=== PATIENT | male | born 1980 | race Hispanic/Latino ===

== ENCOUNTER → 2023-04-11 | Day surgery (SDC) | payer SELFPAY ==
[2023-04-11 12:13] VITALS: BP 118/75
== END | disposition home or self-care (01) | DRG 951 ==
LOC: PO 07:59
PROVIDERS: ATTEND Surgery
DX: Z01.818 Encounter for other preprocedural examination (principal); U07.1 COVID-19; K42.9 Umbilical hernia without obstruction or gangrene

== ENCOUNTER 2023-08-18 01:09 | Inpatient (IN) | payer SELFPAY ==
[~2023-08-18] VITALS: Ht 167.6 cm; Wt 115.3 kg
[2023-08-18] VITALS (78 sets, daily range): BP systolic 68–130; BP diastolic 32–96
[~2023-08-18 01:09] MED LIST: AMOXICILLIN500 MG PO; NAPROSYN500 MG PO; NO MEDS; PERCOCET 5/325M1 TAB PO
--- NOTE | 2023-08-18 01:10 | NUR ---
PT TO ROOM 10 VIA EMS
--- NOTE | 2023-08-18 01:30 | NUR ---
PT RESTING ON STRETCHER W/ EYES CLOSED. RESPONDS TO VERBAL STIMULI. C/O INTERMITTENT CHEST/EPIGASTRIC PAIN. SKIN PALE AND COOL. MANUAL BP OBTAINED, 78/50. NOTIFIED AND AWARE. #22 IV PLACED IN LH AFTER 4 UNSUCCESSFUL ATTEMPTS. I INFORMED PT OF PLAN OF CARE AND HE VERBALIZED UNDERSTANDING.
[2023-08-18 01:37] LABS: BASO% 0.2 % (0-3); EOS% 0.2 % (0-8); HEMATOCRIT 34.6 % (39.0-50.0); HEMOGLOBIN 10.9 g/dl (14.0-18.0); IMMATURE GRANULOCYTES 2.9 % (0.0-5.0); LYMPH% 13.5 % (15-41); MEAN CELL VOLUME 103.6 fL CALC (80.0-100.0); MEAN CORPUSCULAR HGB 32.6 pG CALC (26.0-32.0); MEAN CORPUSCULAR HGB CONC 31.5 g/dL CAL (32.0-36.0); MONO% 3.2 % (2-13); NEUT# 10.16 thou/uL (1.82-7.42); RED BLOOD COUNT 3.34 mill/uL (4.70-6.10); RED CELL DISTRI WIDTH 13.4 % (11.5-15.5)
[2023-08-18 01:49] LABS: ALBUMIN 3.4 g/dL (3.2-5.0); BILIRUBIN, TOTAL 0.6 mg/dL (0.2-1.3); CREATININE 2.1 mg/dL (0.7-1.3); POTASSIUM 4.1 mmol/l (3.5-5.1); TOTAL PROTEIN 5.7 g/dL (6.3-8.2)
--- NOTE | 2023-08-18 02:00 | NUR ---
ACCOMPANIED PT TO CT, TRANSPORTED ON STRETCHER ATTACHED TO HOLE FILLER W/ FLUIDS INFUSING VIA PRESSURE BAG.
--- NOTE | 2023-08-18 02:25 | NUR ---
RETURNED W/ PT BACK TO ER ROOM 10. INFORMED OF CRITICAL LAB VALUE. SEPSIS ALERT INITIATED. NEW ORDERS OBTAINED
--- NOTE | 2023-08-18 02:30 | NUR ---
IVF MAINTANENCE INITIATED DUE TO CONTINUED HYPOTENSION AND TACHYCARDIA.
--- NOTE | 2023-08-18 02:55 | NUR ---
SPOKE W/ DR. LANGFORD VIA TELEPHONE TO UPDATE ON PT'S CONDITION. MD IN ROUTE AND REQUESTED OR TEAM BE CALLED FOR EXPLORATORY LAP. CONTACTED NURSING GENERAL MANAGER [facility].
--- NOTE | 2023-08-18 03:00 | NUR ---
provider/dereje orderd verbally a gonzales
--- NOTE | 2023-08-18 03:15 | NUR ---
MD BEDSIDE TO PLACE CENTRAL LINE. PROCEDURE UNSUCCESSFUL.
--- NOTE | 2023-08-18 03:15 | NUR ---
ABX INITIATED, PATIENT UPDATED ON CONTINUOUS PLAN OF CARE, AT BEDISDE. CONTINUOUS MONITORING, AWAITING FURTHER ORDERS.
[2023-08-18 03:18] LABS: URINE BILIRUBIN - DIPSTICK Negative (NEGATIVE); URINE BLOOD DIPSTICK Negative (NEGATIVE); URINE GLUCOSE - DIPSTICK Negative (NEGATIVE); URINE KETONE Trace mg/dL (NEGATIVE); URINE LEUK ESTERASE Negative (NEGATIVE); URINE NITRITE - DIPSTICK Negative (Negative); URINE PH 5.5 (4.5-8.0); URINE PROTEIN - DIPSTICK Trace mg/dL (NEG-TRACE); URINE SPECIFIC GRAVITY >=1.030; URINE UROBILINOGEN - DIPSTICK 0.2 E.U./dL (0.2)
[2023-08-18 03:19] LABS: URINE COLOR Yellow
--- NOTE | 2023-08-18 03:32 | NUR ---
PT VOMITED PT PLACED ON RIGHT SIDE PT WAS
--- NOTE | 2023-08-18 03:34 | NUR ---
CALLED RESP FOR DR WELCH INTUBATION
--- NOTE | 2023-08-18 03:42 | NUR ---
LEVOPHED PROTOCOL INITIATED DUE TO HYPOTENSION AT 73/51 HR AT 147.
--- NOTE | 2023-08-18 03:45 | NUR ---
DR. LANGFORD BEDSIDE TO DISCUSS PLAN OF CARE W/ PT AND .
--- NOTE | 2023-08-18 04:10 | NUR ---
ANTOINE OUTPUT EMPTIED AND NOTED TO BE 550ML.
--- NOTE | 2023-08-18 04:15 | NUR ---
TIMOTEO, RN BEDSIDE TO TRANSPORT PT TO OR. BEDSIDE REPORT GIVEN. PT TRANSFERED TO OR VIA STRETCHER.
[2023-08-18 09:36] LABS: BASO% 0.1 % (0-3); HEMATOCRIT 29.5 % (39.0-50.0); HEMOGLOBIN 9.8 g/dl (14.0-18.0); IMMATURE GRANULOCYTES 0.3 % (0.0-5.0); MEAN CORPUSCULAR HGB 31.3 pG CALC (26.0-32.0); MEAN CORPUSCULAR HGB CONC 33.2 g/dL CAL (32.0-36.0); MONO% 8.2 % (2-13); NEUT# 12.17 thou/uL (1.82-7.42); NEUT% 81.4 % (42-76); RED BLOOD COUNT 3.13 mill/uL (4.70-6.10); RED CELL DISTRI WIDTH 14.4 % (11.5-15.5)
[2023-08-18 09:55] LABS: ALKALINE PHOSPHATASE 37 u/l (38-126); BUN 18 mg/dL (9-20); POTASSIUM 4.5 mmol/l (3.5-5.1); SGOT/AST 37 u/l (17-59); SODIUM 136 mmol/l (137-146)
[2023-08-18 10:02] LABS: MEAN CELL VOLUME 94.2 fL CALC (80.0-100.0)
[2023-08-18 10:08] LABS: ANION GAP 10 (6-22 (CALC)); BUN/CREATININE RATIO 18 (12-20 (CALC)); CARBON DIOXIDE 16 mmol/l (22-30); CHLORIDE 115 mmol/l (95-108); GFR FOR AFR.AMER. > 60 ML/MIN (>=60 (CALC)); GFR OTHER RACES > 60 ML/MIN (>=60 (CALC))
[2023-08-18 10:09] LABS: BILIRUBIN, TOTAL 0.3 mg/dL (0.2-1.3); TOTAL PROTEIN 4.1 g/dL (6.3-8.2)
--- NOTE | 2023-08-18 11:00 | NUR ---
PT ARRIVES TO ICU-5 FROM OPERATING ROOM, ACCOMPANIED BY NURSES TIMOTEO AND JOJO. PT IS ALERT AND ORIENTED X 3. ABDOMEN SEEN COVERED WITH DRESSINGS, JPs X 2 EXIT FROM RIGHT ABDOMEN. NO ACUTE PAIN NOTED.
[2023-08-18 12:11] LABS: BASO% 0.1 % (0-3); HEMATOCRIT 30.2 % (39.0-50.0); HEMOGLOBIN 10.1 g/dl (14.0-18.0); IMMATURE GRANULOCYTES 0.6 % (0.0-5.0); MEAN CELL VOLUME 93.2 fL CALC (80.0-100.0); MEAN CORPUSCULAR HGB 31.2 pG CALC (26.0-32.0); MEAN CORPUSCULAR HGB CONC 33.4 g/dL CAL (32.0-36.0); MONO% 7.7 % (2-13); NEUT# 11.37 thou/uL (1.82-7.42); NEUT% 80.6 % (42-76); RED BLOOD COUNT 3.24 mill/uL (4.70-6.10); RED CELL DISTRI WIDTH 14.7 % (11.5-15.5)
--- NOTE | 2023-08-18 14:42 | NUR ---
PT WITH VISITORS AT BEDSIDE. PT ABLE TO TOLERATE ICE CHIPS. DRAINS EMPTIED HOURLY, AMOUNT LESSENING. ANTOINE OUTPUT INCREASING. PT MEDICATED FOR PAIN RECENTLY, APPEARS COMFORTABLE NOW.
[2023-08-18 18:22] LABS: HEMATOCRIT 28.2 % (39.0-50.0); HEMOGLOBIN 9.5 g/dl (14.0-18.0)
--- NOTE | 2023-08-18 19:15 | NUR ---
awake. c/o op pain. o2 cont per nc. lunchroom monitor shows sinus tach. lt subcl tlc in place. ivf infusing well. abd dsg cdi. no bowel sounds. rafa x2 in place. gonzales cath in place. urine cloudy yellow. instructed to tcdb freq. bilat scds & fall precautions cont. family @ bedside. medicated for pain as requested. rt notified of need for incentive spirometer.
--- NOTE | 2023-08-18 21:00 | NUR ---
remains on back. encouraged to tcdb but pt doesn't.
--- NOTE | 2023-08-18 22:00 | NUR ---
cont to lay on back. pt hasn't changed position tonight. encouraged pt to tcdb & use incentive spirometer. pt turned to lt side for approx 2 minutes then returned to back.
[2023-08-19] VITALS (59 sets, daily range): BP systolic 100–146; BP diastolic 55–89
--- NOTE | 2023-08-19 00:15 | NUR ---
c/o pain. medicated as ordered.
[2023-08-19 00:32] LABS: HEMOGLOBIN 8.5 g/dl (14.0-18.0)
--- NOTE | 2023-08-19 02:00 | NUR ---
eyes closed. no distress. high pressure kettle operator shows sinus tach.
--- NOTE | 2023-08-19 04:15 | NUR ---
medicated for pain as requested. blood drawn & sent to lab.
--- NOTE | 2023-08-19 05:30 | NUR ---
has not tcdb or used incentive spirometer this shift. up in bedside chair.
[2023-08-19 06:15] LABS: BASO% 0.2 % (0-3); HEMATOCRIT 24.6 % (39.0-50.0); HEMOGLOBIN 8.3 g/dl (14.0-18.0); IMMATURE GRANULOCYTES 0.3 % (0.0-5.0); LYMPH% 20.3 % (15-41); MEAN CELL VOLUME 94.3 fL CALC (80.0-100.0); MEAN CORPUSCULAR HGB 31.8 pG CALC (26.0-32.0); MEAN CORPUSCULAR HGB CONC 33.7 g/dL CAL (32.0-36.0); MONO% 8.7 % (2-13); NEUT# 9.37 thou/uL (1.82-7.42); NEUT% 70.5 % (42-76); RED BLOOD COUNT 2.61 mill/uL (4.70-6.10); RED CELL DISTRI WIDTH 15.3 % (11.5-15.5)
--- NOTE | 2023-08-19 06:15 | NUR ---
medicated for pain as requested. asked pt if he still drank alcohol. pt admitted 2-3 beers daily. asked pt if staff needed to watch for d/t's. pt said yes.
[2023-08-19 06:25] LABS: ALBUMIN 2.2 g/dL (3.2-5.0); ALKALINE PHOSPHATASE 48 u/l (38-126); BUN 15 mg/dL (9-20); BUN/CREATININE RATIO 17 (12-20 (CALC)); CHLORIDE 110 mmol/l (95-108); CREATININE 0.8 mg/dL (0.7-1.3); GFR FOR AFR.AMER. > 60 ML/MIN (>=60 (CALC)); GFR OTHER RACES > 60 ML/MIN (>=60 (CALC)); POTASSIUM 3.6 mmol/l (3.5-5.1); SGOT/AST 41 u/l (17-59); SODIUM 136 mmol/l (137-146); TOTAL PROTEIN 4.3 g/dL (6.3-8.2)
[2023-08-19 06:26] LABS: ANION GAP 8 (6-22 (CALC)); BILIRUBIN, TOTAL 0.5 mg/dL (0.2-1.3); CARBON DIOXIDE 22 mmol/l (22-30)
[2023-08-19 07:51] LABS: HEMOGLOBIN 8.2 g/dl (14.0-18.0)
--- NOTE | 2023-08-19 08:03 | NUR ---
Patient up to chair since 0600. Family at bedside. Patient requesting to go back to bed. Patient agreed to sit in chair until after breakfast. C/o nausea. Medicated according to emar. Afebrile. Lungs clear to ascultation. Denies pain at this time. Breathing even and unlabored. ST on the monitor. NAD noted. Call light next to R hand. Will continue with POC.
--- NOTE | 2023-08-19 10:23 | NUR ---
Patient appears to be resting with eyes closed. ST on the monitor. NAD noted. Bed in low position. Family members at bedside. Will continue with POC.
--- NOTE | 2023-08-19 14:17 | NUR ---
Patient appears to be resting in bed. Family at bedside. PRBCs transfusing. NAD noted. Bed in low position. Call light next to R hand. Will continue with POC.
--- NOTE | 2023-08-19 16:10 | NUR ---
Patient appears to be resting with eyes closed. ST on the monitor. NAD noted. Bed in low position. Call light next to R hand. Will continue with POC.
--- NOTE | 2023-08-19 18:29 | NUR ---
Patient repositioned to L side. Reminded of using incentive spirometer at least 10 times every waking hour. Demonstrated proper use and watched patient practice use. ST on the monitor. Stated he was having nausea/pain, medicated according to emar. NAD noted. Will continue with POC.
--- NOTE | 2023-08-19 19:00 | NUR ---
BEDSIDE REPORT RECEIVED FROM Nathalie VELEZ RN, CARE OF PT ASSUMED AT THIS TIME.
--- NOTE | 2023-08-19 23:00 | NUR ---
PT HAS ACUTE DROP IN SP02 TO MID 80'S, 02 INCREASED TO 6L/M. PT SAT UP TO HIGH FOWLERS, PT COACHED IN PULMONARY HYGIENE, ASSISTED TO SPLINT AND C/D/B, USE IS AND ACAPELLA. CONSULTED WITH CHIPPER MACHINE OPERATOR, PATIENT SWITCHED TO HIGH FLOW AT 8L/M. NOTED BOAZ DRAIN OUTPUT HAS INCREASED SIGNIFICANTLY.
[2023-08-19 23:08] LABS: BASO% 0.2 % (0-3); HEMATOCRIT 23.8 % (39.0-50.0); IMMATURE GRANULOCYTES 0.9 % (0.0-5.0); LYMPH% 14.6 % (15-41); MEAN CELL VOLUME 94.4 fL CALC (80.0-100.0); MEAN CORPUSCULAR HGB 31.7 pG CALC (26.0-32.0); MEAN CORPUSCULAR HGB CONC 33.6 g/dL CAL (32.0-36.0); MONO% 9.2 % (2-13); NEUT# 9.67 thou/uL (1.82-7.42); NEUT% 75.1 % (42-76); RED BLOOD COUNT 2.52 mill/uL (4.70-6.10); RED CELL DISTRI WIDTH 14.8 % (11.5-15.5)
--- NOTE | 2023-08-19 23:20 | NUR ---
PCXR COMPLETED AND RESULTED, NEW RLL INFILTRATE.
--- NOTE | 2023-08-19 23:53 | NUR ---
EKG COMPLETED BY Dafne LICEA HEMODIALYSIS RN, ST 135.
[2023-08-20] VITALS (81 sets, daily range): BP systolic 107–154; BP diastolic 64–91
--- NOTE | 2023-08-20 00:05 | NUR ---
ABG DONE BY Dafne LICEA ASSESSMENT NURSE PRACTITIONER AND RESULTED.
[2023-08-20 01:06] LABS: HEMATOCRIT 26.2 % (39.0-50.0); HEMOGLOBIN 8.8 g/dl (14.0-18.0)
[2023-08-20 01:07] LABS: MAGNESIUM 1.9 mg/dL (1.6-2.3)
--- NOTE | 2023-08-20 02:00 | NUR ---
NO OUTPUT FROM BOAZ'S, TUBING STRIPPED AND BULB SUCTION RE-ENGAGED. BOAZ'S BEGIN TO DRAIN AGAIN.
--- NOTE | 2023-08-20 03:32 | NUR ---
TRANSFUSION UNIT PRBC INITIATED.
--- NOTE | 2023-08-20 06:45 | NUR ---
TRANSFUSION PRBC COMPLETED, WELL TOLERATED.
--- NOTE | 2023-08-20 07:59 | NUR ---
Patient appears to be resting in bed. Family at bedside.
--- NOTE | 2023-08-20 10:00 | NUR ---
Patient appears to be resting with eyes closed. ST on the monitor. NAD noted. Bed in low position. Call light next to L hand. Will continue with POC.
--- NOTE | 2023-08-20 12:05 | NUR ---
Patient sitting in chair, appears to be resting with eyes closed. PRBC transfusing. ST on the monitor. Family at bedside. NAD noted. Breathing even and unlabored. Will continue with POC.
--- NOTE | 2023-08-20 12:50 | NUR ---
Spoke with patient's son, Arnold, who can be reached at [phone]. Stated it is okay for patient to have dialysis, if needed.
[2023-08-20 13:29] LABS: BASO% 0.1 % (0-3); EOS% 0.1 % (0-8); HEMOGLOBIN 9.8 g/dl (14.0-18.0); IMMATURE GRANULOCYTES 1.1 % (0.0-5.0); LYMPH% 17.5 % (15-41); MEAN CELL VOLUME 90.1 fL CALC (80.0-100.0); MEAN CORPUSCULAR HGB 30.4 pG CALC (26.0-32.0); MEAN CORPUSCULAR HGB CONC 33.8 g/dL CAL (32.0-36.0); MONO% 7.9 % (2-13); NEUT# 8.43 thou/uL (1.82-7.42); NEUT% 73.3 % (42-76); RED BLOOD COUNT 3.22 mill/uL (4.70-6.10); RED CELL DISTRI WIDTH 14.9 % (11.5-15.5)
--- NOTE | 2023-08-20 16:14 | NUR ---
Patient appears to be resting. Family at bedside. ST on the monitor. NAD noted. Will continue with POC.
--- NOTE | 2023-08-20 18:35 | NUR ---
Patient sitting up in bed. States pain was at an 8 approx 1745. Patient has been sleeping all day. Educated patient on repositioning and using spirometer. Verbalized understanding. ST on the monitor. NAD noted. Will continue with POC.
--- NOTE | 2023-08-20 19:05 | NUR ---
BEDSIDE REPORT RECEIVED FROM Nathalie VELEZ RN, CARE OF PT ASSUMED AT THIS TIME.
--- NOTE | 2023-08-20 20:15 | NUR ---
POINT OF CARE GLUCOSE 185mg/Dl, PRESCRIBED MEDICATIONS ADMINISTERED CRUSHED IN APPLE SAUCE REQUESTED BY PT. PRN ANTITUSSIVE ADMNISTERED REQIESTED BY PT FOR C/O DRY COUGH. SEE E-MAR. PT ENIES FURTHER NEEDS AT THIS TIME. CALL LOZOYA WITHIN REACH, AGREES TO CALL PRN.
--- NOTE | 2023-08-20 20:30 | NUR ---
PT SITTING UP IN BED, FAMILY/VISITORS AT BEDSIDE. PT DENIES PAIN AT THIS TIME. PT DENIES NEEDS AT THIS TIME. 20 ML SANGUINEOUS DRAINAGE EMPTIED FROM BOAZ DRAIN #1 60 ML SANGUINEOUS DRAINAGE EMPTIED FROM BOAZ DRAIN #2 ABD DRESSING C/D/I. PT REPORTS HE IS NOW PASSING FLATUS. CALL LOZOYA WITHIN REACH, AGREES TO CALL PRN.
--- NOTE | 2023-08-20 22:15 | NUR ---
PT SITTING UP WATCHING TV, DENIES NEEDS AT THIS TIME. CALL LOZOYA WITHIN REACH, AGREES TO CALL PRN.
[2023-08-21] VITALS (62 sets, daily range): BP systolic 111–138; BP diastolic 69–85
--- NOTE | 2023-08-21 00:26 | NUR ---
PT LAYING SUPINE, EYES CLOSED, RESPIRATIONS REGULAR EVEN AND UNLABORED. ST 104 ON RECORDS COORDINATOR. SP02 97-98%. RR 15-16/MIN. NIBP 127/75 mmHg. PT EXHIBITS NO APPARENT DISTRESS OR DISCOMFORT AND APPEARS TO BE SLEEPING COMFORTABLY. CALL LOZOYA REMAINS WITHIN REACH.
--- NOTE | 2023-08-21 03:30 | NUR ---
PT WAKES AND USES NURSE CALL LIGHT TO REQUEST PRN ANALGESIC. REPORTS ABD PAIN 04/29. PRN ANALGESIC ADMINISTERED, SEE E-MAR. DENIES FURTHER NEEDS AT THISS TIME. CALL LOZOYA WITHIN REACH, AGREES TO CALL PRN.
--- NOTE | 2023-08-21 05:22 | NUR ---
AM LABS COLLED VIA L-SC TLC. 15 ML SANGUINEOUS DRAINAGE EMPTIED FROM BOAZ DRAIN #1. 120 ML SANGUINEOUS DRAINAGE EMPTIED FROM BOAZ DRAIN #2. 700ML DARK YELLOW URINE WITH FINE SEDIMENT EMPTIED FROM ANTOINE. PT SITTING UP USING INCENTIVE SPIROMETER, DENIES PAIN. FRESH ICE WATER PROVIDED PER PT'S REQUEST. DENIES FURTHER NEEDS AT THIS TIME. CALL LOZOYA REMAINS WITHIN REACH, AGREES TO CALL PRN.
[2023-08-21 05:45] LABS: BASO% 0.1 % (0-3); EOS% 0.6 % (0-8); HEMATOCRIT 26.2 % (39.0-50.0); HEMOGLOBIN 8.8 g/dl (14.0-18.0); IMMATURE GRANULOCYTES 1.4 % (0.0-5.0); LYMPH% 20.1 % (15-41); MEAN CELL VOLUME 91.6 fL CALC (80.0-100.0); MEAN CORPUSCULAR HGB 30.8 pG CALC (26.0-32.0); MEAN CORPUSCULAR HGB CONC 33.6 g/dL CAL (32.0-36.0); MONO% 8.1 % (2-13); NEUT# 7.24 thou/uL (1.82-7.42); NEUT% 69.7 % (42-76); RED BLOOD COUNT 2.86 mill/uL (4.70-6.10); RED CELL DISTRI WIDTH 15.2 % (11.5-15.5)
--- NOTE | 2023-08-21 06:44 | NUR ---
CUTTER DOWN ON ROOM REFILLING HUMIDITY ON PT'S HIGH FLOW 02.
--- NOTE | 2023-08-21 08:04 | NUR ---
PATIENT RESTING IN BED WITH EYES OPEN. NO C/O OF PAIN, NO SOB, AOX3 AND ANSWERING QUESTIONS APPROPRIATELY. EMPTIED OUT BOAZ DRAINS AND ANTOINE. PATIENT STATES HE IS AMBULATING FROM BED TO CHAIR WITH MINIMAL PAIN. NO OTHER CONCERNS AT THIS TIME.
--- NOTE | 2023-08-21 09:30 | NUR ---
PATEINT UP IN CHAIR TO IMPROVE OXYGENATION. PATIENT C/O OF MILD BURNING PAIN IN ABDOMEN. LORTAB WAS GIVEN WITH SOME RELIEF ACHIEVED. BOAZ DRAINS CONTAINING 50MLS OF BRIGHT RED SERI SANGUINEOUS FLUID. CALL LIGHT WITHIN REACH.
--- NOTE | 2023-08-21 15:00 | NUR ---
DR LANGFORD ASSESSED PATIENT AND PLACED ORDERS FOR DOWNGRADE TO MS UNIT. HE PRESCRIBED IV LASIX AND DC'D IV FLUIDS. HE STATED ANTOINE CATHETER CAN BE REMOVED IN THE AM TOMORROW. PATIENT HAD SOME DIFFICULTY GETTING FROM RECLINER TO WHEELCHAIR BUT WAS SUCESSFUL USING A WALKER. TRANSPORTED PATIENT TO MED SURG UNIT VIA WHEELCHAIR AND GAVE REPORT TO NURSE TATA. PATIENT CONDITION STABLE, AOX3, MINIMAL PAIN WITH ACTIVITY. SURGICAL DRESSINGS CLEAN AND DRY. BOAZ DRAINS INTACT AND DRAINING BRIGHT RED SERISANGUINEOUS FLUID. 2L NASAL CANNULA PRN PATIENT TENDS TO RUN IN UPPER 80'S, LOW 90'S BC D/T ATELECTASIS AND GENERALIZED EDEMA.
--- NOTE | 2023-08-21 15:11 | NUR ---
PT BROUGHT OVER FROM ICU VIA WHEELCHAIR. PT WAS ABLE TO AMBULATE TO BED WITH X2 ASSIST. GAIT WEAK. PT IS A/OX3, COMPLAINS OF MILD PAIN 3 OUT OF 10 IN ABD. NOTED PT ANTOINE CATHETER WITH CLEAR YELLOW URINE OUTPUT. CENTRAL LINE IN LEFT CHEST NOTED. DSG CLEAN AND INTACT. PT HAS 2 BOAZ DRAINS WITH RED BLOODY OUTPUT TO THE RT LOWER QUADRANT OF ABD. MIDLINE INCISION NOTED BUT UNOBERSABLE DUE TO DSG. DSG CDI. PT HAS +2 PITTING EDEMA BLE. EDEMA NOTED BILATERALLY IN FOREARMS AND HANDS. PT SCROTUM HAS SWELLING NOTED WELL. APPLIED TIBURCIO HOSE TO BLE WITH SCD'S. EDUCATED PT ON PLAN OF CARE, AMBULATING, DIET AND MED SCHEDULE. APPLIED PILLOWS UNDER ALL EXTREMETIES TO ELEVATE. CALL LIGHT WITHIN REACH AND SAFETY PRECAUTIONS IN PLACE. PT FAMILY AT BEDSIDE.
--- NOTE | 2023-08-21 19:17 | NUR ---
PT HAD A OXYGEN SATURATION OF 80 @1904. NURSE PEÑA SHAFFER @1906.
--- NOTE | 2023-08-21 20:06 | NUR ---
PATIENT SITTING UP IN BED AT THIS TIME WITH FAMILY AT BEDSIDE. O2 VIA NASAL CANNULA WAS APPLIED EARLIER FOR SOB AND LOW O2 SAT. O2 SAT AT THIS TIME WITH O2 AT 3LPM NASAL CANNULA IS 96%. PATIENT STATES THAT HIS BREATHING HAS IMPROVED. STILL A LIKTTLE RAPID AT 24-26 RESP PER MIN. PATIENT WITH CRACKLES ALMA IN LUNGS HALF WAY UP. PATIENT IS ABLE TO DEMONSTRATE PROPER USE OF IS IN REPS OF 10. ALSO ENCOUARGED USE OF FLUTTER VALVE. ABD IS DISTENDED BUT SOFT WITH LARGE ABD DRESSING CDI AT THIS TIME. 2 BOAZ DRAINS ARE INTACT TO RIGHT ABD DRAINING SEROSANGUINOUS FLUID. BS ARE PRESENT. PATIENT STATES THAT HE DID HAVE SMALL BROWN STOOL EARLIER TONIGHT AFTER WALKING. IS PASSING FLATUS. ANTOINE CATH PATENT AND DRAINING YELLOW URINE. TAKING PO FLUIDS IN SMALL AMTS-NO NAUSEA AT THIS TIME. CALL PLACED TO DR. RUANO REGGRAYING RESP STATUS-CRACKLES IN LUNGS AND GENERALIZED EDEMA. LET MESSAGE ON VOICE MAIL. SAFETY PRECAUTIONS REINFORCED. CALL LIGHT IN REACH. WILL CONT TO MONITOR.
--- NOTE | 2023-08-21 21:31 | NUR ---
PT AMBULATED UP AND DOWN [address] YAN ON [employer] TWICE @2124. THE NURSE PEÑA NOTIFIED.
--- NOTE | 2023-08-21 22:30 | NUR ---
PATIENT SITTING UP IN BED WITH O2 VIA NASAL CANNULA IN PLACE AT 2LPM. O2 SAT IS NOW 94%. PATIENT WAS UP AND AMB IN THE YAN WITH SB ASSIST-TOLERATE WELL. PATIENT MEDICATED FOR PAIN WITH DILAUDID 1MG FOR POST-OP PAIN. PATIENT ALSO RECIEVED LASIX 20MG IVP ORDERED VIA LEFT TLC. ABD DRESSINGS WERE CHANGED. ONLY SCANT AMT OF DRIED BLOODY DRAINAGE NOTED ON OLD DRESSING. 2 BOAZ DRAINS INTACT. #1 EMPTIED FOR 10CC OF SERSANGUINOUS FLUID. ,#2 EMPTIED FOR 50CC OF SEROSANGUINOIUS FLUID. NEW DSD APPLIED-GERMÁN ARE INTACT AND INCISION WELL APPROXIMATED. ABD IS SLIGHTLY DISTENDED BUT SOFT WITH ACTIVE BS.ANTOINE PATENT AND DRAINING LARGE AMT OF YELLOW URINE. SAFETY PRECAUTIONS REINFORCED. CALL LIGHT IN REACH. WILL CONT TO MONITOR.
[2023-08-22] VITALS (7 sets, daily range): BP systolic 107–128; BP diastolic 65–74
--- NOTE | 2023-08-22 01:00 | NUR ---
RESTING IN BED-STATES THAT HIS BREATHING IS IMPROVED-O2 VIA NASAL CANNULA IN PLACE AT 2LPM. PATIENT RECIEVED ZOSYN ORDERED. CALL LIGHT IN REACH. WILL CONT TO MONITOR.
--- NOTE | 2023-08-22 02:40 | NUR ---
PATIENT RESTING IN BED WITH O2 VIA NASAL CANNULA IN PLACE AT 2LPM WITH O2 SAT OF 94% AT THIS TIME. BREATHING MORFE RELAXED THAN EARLIER IN THE SHIFT. MEDICATED FOR POST-OP PAIN/RIGHT LEG PAIN WITH DILAUDID 1MG IVP ORDERED FOR 7/10 PAIN SCALE. SCD'S ARE INPLACE. PATIENT USING IS INSTRUCTED Q1H WHILE AWAKE IN REPS OF 10. ANTOINE DRAINING YELLOW URINE AND 2 BOAZ DRAINS CONT TO DRAIN SERSANGUINOUS FLUID. CALL LIGHT IN REACH. WILL CONT TO MONITOR.
--- NOTE | 2023-08-22 04:51 | NUR ---
PATIENT RESTING IN BED AT THIS TIME WITH EYES CLOSED AND RESPS ARE EVEN AND UNLABORED AT THIS TIME. O2 VIA NASAL CANNULA IN PLACE AT 2LPM. LAB WORK DRAWN FROM LEFT UPPER CHEST TLC BROWN PORT. GOOD BLOOD RETUN AND FLUSH WITH SALINE PER PROTOCOL. ALL 3 PORTS FLUSHED PER PROTOCOL WITH GOOD BLOOD RETURN FROM ALL 3 PORTS. ANTOINE CONT TO DRAIN YELLOW URINE. ABD DRESSING REMAINS CDI. 2 BOAZ DRAINS TO RIGHT ABD INTACT AND CONT TO DRAIN SERSANGUINOUS FLUID. SCD'S IN PLACE. CALL LIGHT IN REACH. WILL CONT TO MONITOR.
[2023-08-22 05:23] LABS: BASO% 0.1 % (0-3); EOS% 1.2 % (0-8); HEMATOCRIT 25.5 % (39.0-50.0); HEMOGLOBIN 8.5 g/dl (14.0-18.0); LYMPH% 14.8 % (15-41); MEAN CELL VOLUME 92.7 fL CALC (80.0-100.0); MEAN CORPUSCULAR HGB 30.9 pG CALC (26.0-32.0); MEAN CORPUSCULAR HGB CONC 33.3 g/dL CAL (32.0-36.0); MONO% 9.1 % (2-13); NEUT# 7.72 thou/uL (1.82-7.42); NEUT% 72.8 % (42-76); RED BLOOD COUNT 2.75 mill/uL (4.70-6.10); RED CELL DISTRI WIDTH 14.8 % (11.5-15.5)
[2023-08-22 05:51] LABS: ANION GAP 6 (6-22 (CALC)); BUN 12 mg/dL (9-20); BUN/CREATININE RATIO 18 (12-20 (CALC)); CHLORIDE 98 mmol/l (95-108); CREATININE 0.7 mg/dL (0.7-1.3); GFR FOR AFR.AMER. > 60 ML/MIN (>=60 (CALC)); GFR OTHER RACES > 60 ML/MIN (>=60 (CALC)); POTASSIUM 3.1 mmol/l (3.5-5.1); SODIUM 131 mmol/l (137-146)
[2023-08-22 05:54] LABS: CARBON DIOXIDE 30 mmol/l (22-30)
--- NOTE | 2023-08-22 08:00 | NUR ---
PT IN BED WITH HOB UP, PT IS ALERT AND ORIENTED X3. PT REMAINS ON CLEAR LIQUID DIET. TELE ON WITH LEADS ATTACHED. O2@ 2 LITERS ON VIA NC. LUNG SOUNDS COARSE IN LOWER BASES. ABD SOFT WITH HYPOACTIVE BS. PT ANTOINE INTACT DRAINING DARK, YELLOW URINE. BOAZ DRAIN WITH 5 ML OF BLOODY DRAINAGE NOTED, LOWER BOAZ DRAIN WITH NO DRAINAGE NOTED AT THIS TIME. DRESSING TO ABD CLEAN, DRY AND INTACT. PT HAS CALL LIGHT WITHIN REACH AND ALL SAFETY MEASURES IN PLACE AT THIS TIME.
--- NOTE | 2023-08-22 12:00 | NUR ---
PT IN BED RESTING, EYES OPENED TO VOICE. PT FAMLIY AT BEDSIDE. PT C/O PAIN AT 6/10 ON PAIN SCALE. PT MEDICATED WITH PRN MEDICATION. PT HAS CALL LIGHT WITHIN REACH AND ALL SAFETY MEASURES IN PLACE AT THIS TIME.
--- NOTE | 2023-08-22 16:00 | NUR ---
PT IN BED WITH HOB UP, FAMILY IN RM. DRESSING TO ABD C/D/I. PT HAS CALL LIGHT WITHIN REACH AND SAFETY MEASURES IN PLACE.
--- NOTE | 2023-08-22 17:23 | NUR ---
Discharge instructions given. Patient verbalizes understanding of same. Discharged in stable condition via Wheelchair to Home with family. All belongings sent with pt.
--- NOTE | 2023-08-22 19:30 | NUR ---
PATIENT RESTING IN BED AT THIS TIME WITH O2 VIA NASAL CANNULA IN PLACE AT 1LPM. FAMILY VISITING AT BEDSIDE. ANTOINE PATENT AND DRIANING YELLOW URINE. BOAZ DRAINS INTACT TO RIGHT ABD. ABD DRESSING CDI. LEFT UPPER CHEST TLC INTACT. CALL LIGHT IN REACH. WILL CONT TO MONITOR.
--- NOTE | 2023-08-22 21:42 | NUR ---
PATIENT RESTING IN BED AT THIS TIME WITH O2 VIA NASAL CANNULA IN PLACE AT 1LPM. CURRENTLY O2 SAT IS 94%. PATIENT WAS JUST UP AND DID WALK IN THE HALLS AND THEN TO THE BR FOR ANOTHER SMALL BROWN BM. PATIENT STATES THAT HE HAS HAD 3 SMALL BM'S TODAY TOTAL. STATES THAT HE IS PASSING FLATUS. ABD IS DISTENDED WITH HYPOACTIVE BS. ANTOINE CATH IS PATENT AND DRAINING YELLOW URINE-EMPTIED FOR 700CC AT THIS TIME. ABD DRESSING IS CDI. 2JP DRAINS REMAINS IN PLACE AND DRAINING SEROSANGUINOUS FLUID. #1 EMPTIED FOR 25CC AND #2 EMPTIED FOR 90. ALL I&O HAS BEEN RECORDED. ENCOURAGED U SE OF IS AND FLUTTER VALVE AT BEDSIDE. LUNGS ARE CLEAR AT THIS TIME. TAKING PO FLUIDS AND TOLERATING WELL SO FAR. DENIES ANY NAUSEA. LEFT UPPER CHEST TLC INTACT AND APPEARS HEALTHY AT THIS TIME. PATIENT MEDICATED FOR POST-OP PAIN WITH LORTAB 5/325MG PO FOR 6/10 PAIN SCALE. SCD'S IN PLACE. SAFETY PRECAUTIONS REINFORCED. CALL LIGHT IN REACH. WILL CONT TO MONITOR.
[2023-08-23] VITALS (7 sets, daily range): BP systolic 106–133; BP diastolic 70–73
--- NOTE | 2023-08-23 00:56 | NUR ---
PATIENT RESTING IN BED WITH O2 VIA NASAL CANNULA IN PLACE AT 1LPM-O2 SAT WAS 94%. ZOSYN GIVEN ORDERED. C/O POST-OP PAIN-TOO EARLY FOR LORTAB-MEDICATED WITH DILAUDID 1MG IVP VIA LEFT TLC. CALL LIGHT IN REACH. WILL CONT TO MONITOR.
--- NOTE | 2023-08-23 04:00 | NUR ---
PATIENT RESTING IN BED AT THIS TIME WITH EYES CLOSED. RESPS ARE EVEN AND UNLABORED. O2 VIA NASAL CANNULA IN PLACE AT 1LPM. ANTOINE PATENT AND DRAINING YELLOW URINE. CALL LIGHT IN REACH. WILL CONT TO MONITOR.
--- NOTE | 2023-08-23 06:00 | NUR ---
RESTING IN BNED-ZOSYN HUNG ORDERED. BOAZ DRAINS WERE EMPTIED-#1-10CC OF SEROSANGUINOUS FLUID. #2-100CC OF SEROSANGUINOUS FLUIDS. ABD DRESSING REMAINS CDI AT THIS TIME. LEFT UPPER CHEST TLC INTACT AND HEALTHY AT THIS TIME. ANTOINE PATENT AND DRAINING YELLOW URINE. CALL LIGHT IN REACH. WILL CONT TO MONITOR.
--- NOTE | 2023-08-23 07:09 | NUR ---
PT RESTING IN SEMI FOWLERS POSITION A/O HEART RHYTHM ON TELE. RESPIRATIONS ON 1LNC .TRIPLELUMEN NOTED. URINARY CATH NOTED DRAINING YELLOW URINE PER GRAVITY. PT C/O PAIN TO BEMEDICATED PER EMAR. 2 BOAZ DRAINS NOTED TO PT RIGHT SIDE . PT DENIES ADDITIONAL NEEDS AT THE TIME ALL SAFETY PRECAUTIONS IN PLACE WITH CALL LIGHT IN REACH.
--- NOTE | 2023-08-23 09:20 | NUR ---
Pt was offered to ambulate. Pt stated to "come back in an hour".
--- NOTE | 2023-08-23 09:47 | NUR ---
BOAZ DRAIN #1 REMOVED PTTOLERATED WELL.
--- NOTE | 2023-08-23 11:16 | NUR ---
Pt offered ambultion, but declined stating that he felt dizzy after using the restroom. Pt asked to return after lunch to try again. Nurse notified of pt's decision and of dizziness.
--- NOTE | 2023-08-23 12:01 | NUR ---
PT RESTING IN SEMI FOWLERS POSITION. PT COMPLAINS OF PAIN MEDICATED PER EMAR.
--- NOTE | 2023-08-23 13:30 | NUR ---
PT ANTOINE CATH REMOVED PT TOLERATED WELL. EDUCATED PT NEED OF URINATION VERIFICATION AFTER REMOVED. PT STATED UNDERSTANDING WILL NOTIFY STAFF WHEN PT HAS VOIDED.
--- NOTE | 2023-08-23 16:44 | NUR ---
PT MEDICATED PER EMAR FOR PAIN.
[2023-08-24 04:37] VITALS: BP 125/71
--- NOTE | 2023-08-24 07:20 | NUR ---
PT RESTING IN LOW FOWLERS POSITION.PT A/OX3 HEART RHYHTM NORM RESPIRATIONS ON ROOM AIR PT USES 1L O2 PRN PT EDUCATED NEED OF COMING OFF O2 HOMEDEPENDENT. TRIPLE LUMEN IJ NOTED. PT C/O PAIN TO BE MEDICATED PER EMAR .PT STATED HAS BEEN URINATING AND USES WALKER TO HELP AMBULATE TO RESTROOM.PT BOAZ DRAIN NOTED. PT DRESSING CDI. PT DENIES ADDITIONAL NEEDS AT THE TIME ALL SAFETY PRECAUTIONS IN PLACE WITH CALL LIGHT IN REACH.
[2023-08-24 07:45] LABS: BASO% 0.2 % (0-3); EOS% 1.6 % (0-8); HEMATOCRIT 25.7 % (39.0-50.0); HEMOGLOBIN 8.4 g/dl (14.0-18.0); IMMATURE GRANULOCYTES 3.1 % (0.0-5.0); LYMPH% 17.6 % (15-41); MEAN CELL VOLUME 92.8 fL CALC (80.0-100.0); MEAN CORPUSCULAR HGB 30.3 pG CALC (26.0-32.0); MEAN CORPUSCULAR HGB CONC 32.7 g/dL CAL (32.0-36.0); MONO% 8.1 % (2-13); NEUT# 7.42 thou/uL (1.82-7.42); NEUT% 69.4 % (42-76); RED BLOOD COUNT 2.77 mill/uL (4.70-6.10)
[2023-08-24 07:48] VITALS: BP 132/76
[2023-08-24 08:19] LABS: ANION GAP 10 (6-22 (CALC)); BUN 10 mg/dL (9-20); BUN/CREATININE RATIO 18 (12-20 (CALC)); CARBON DIOXIDE 25 mmol/l (22-30); CHLORIDE 99 mmol/l (95-108); CREATININE 0.6 mg/dL (0.7-1.3); GFR FOR AFR.AMER. > 60 ML/MIN (>=60 (CALC)); GFR OTHER RACES > 60 ML/MIN (>=60 (CALC)); POTASSIUM 3.1 mmol/l (3.5-5.1); SODIUM 132 mmol/l (137-146)
--- NOTE | 2023-08-24 13:12 | NUR ---
PT BOAZ DRAIN REMOVED . PT TOLERATED WELL. EVERY OTHER STAPLE REMOVED PT TOLERATED WELL. DRESSING CHANGE COMPLETED. PT MEDICATED PER EMAR FOR PAIN .
[2023-08-24] MEDS ORDERED: TRAMADOL HCL50 MG PO (14:07)
--- NOTE | 2023-08-24 16:04 | NUR ---
PT TO BE DC PT TRIPLE LUMEN CATH TO BE REMOVED BY RN .
[2023-08-24 16:28] VITALS: BP 119/76
--- NOTE | 2023-08-24 17:46 | NUR ---
Discharge instructions given. Patient verbalizes understanding of same. Discharged in stable condition via Wheelchair to Home with staff. All belongings sent with pt. TRIPLE LUMEN REMOVED BY RN. NO TELE.
== END 2023-08-24 17:46 | disposition home or self-care (01) | DRG 907 ==
LOC: ED 01:09 → ICU 03:59 → MS2 06:23
PROVIDERS: Emergency Medicine; ADMIT Surgery; ATTEND Surgery
PROC: 0WCG0ZZ Extirpation of Matter from Peritoneal Cavity, Open Approach (ICD-10-PCS; principal; 2023-08-18)
PROC: 0KP Muscles, Removal (ICD-10-PCS; 2023-08-18)
PROC: 0W3G0ZZ Control Bleeding in Peritoneal Cavity, Open Approach (ICD-10-PCS; 2023-08-18)
PROC: 0WJG4ZZ Inspection of Peritoneal Cavity, Percutaneous Endoscopic Approach (ICD-10-PCS; 2023-08-18)
PROC: 02HV33Z Insertion of Infusion Device into Superior Vena Cava, Percutaneous Approach (ICD-10-PCS; 2023-08-18)
PROC: 30243N1 Transfusion of Nonautologous Red Blood Cells into Central Vein, Percutaneous Approach (ICD-10-PCS; 2023-08-19)
PROC: 30243N1 Transfusion of Nonautologous Red Blood Cells into Central Vein, Percutaneous Approach (ICD-10-PCS; 2023-08-20)
PROC: 30243N1 Transfusion of Nonautologous Red Blood Cells into Central Vein, Percutaneous Approach (ICD-10-PCS; 2023-08-20)
DX: M96.841 Postprocedural hematoma of a musculoskeletal structure following other procedure (principal); J18.9 Pneumonia, unspecified organism; D62 Acute posthemorrhagic anemia; N17.9 Acute kidney failure, unspecified; T81.19XA Other postprocedural shock, initial encounter; I95.89 Other hypotension; Y83.2 Surgical operation with anastomosis, bypass or graft as the cause of abnormal reaction of the patient, or of later complication, without mention of misadventure at the time of the procedure
CPT/HCPCS: P9016; S0164